=== PATIENT | female | born 1975 | race African-American/Black ===

== ENCOUNTER 2017-06-29 20:00 | Emergency (ER) | payer MEDICAID, OTHER ==
[~2017-06-29] VITALS: Ht 165.1 cm; Wt 151.0 kg
[2017-06-29] MEDS ORDERED: LISINOPRIL20 MG ORAL (20:34)
[2017-06-29] MEDS ORDERED: METFORMIN HCL500 M1 ORAL (20:34)
[2017-06-29 20:40] VITALS: BP 115/78
[2017-06-29] MEDS ORDERED: CLINDAMYCIN HC300 MG ORAL (20:40)
[2017-06-29 20:44] VITALS: BP 115/78
--- NOTE | 2017-06-29 22:41 | Emergency Room Report ---
History of Present Illness General Chief Complaint: Earache Source: Patient Present Illness HPI 41-year-old female no significant past medical history presenting with sore throat and bilateral earache for 2 days. Patient states that his sister has cellulitis. Subjective fever or chills. Patient states that she is still been able to eat and drink well. No hearing loss Allergies: Coded Allergies: PENICILLINS (Verified Allergy, Unknown, 06/29/17) Patient History Past Medical History: see triage record Past Surgical History: none Pertinent Family History: none Last Menstrual Period: May Reviewed Nursing Documentation: PMH: Agreed, PSxH: Agreed Nursing Documentation-PMH Hx Hypertension: Yes Hx Diabetes: Yes Review of Systems All Other Systems: negative except mentioned in HPI Physical Exam Vital Signs Date Time Temp Pulse Resp B/P (MAP) Pulse Ox O2 Delivery O2 Flow Rate FiO2 06/29/17 20:26 99.0 103 18 115/78 99 Sp02 EP Interpretation: reviewed, normal General Appearance: normal inspection, well appearing, no apparent distress, alert, GCS 15, non-toxic Head: normocephalic, atraumatic Eyes: bilateral eye normal inspection, bilateral eye PERRL, bilateral eye EOMI ENT: normal voice, TMs + canals normal, moist mucus membranes, tonsillar swelling, pharyngeal erythema, tonsillar exudate Neck: normal inspection, full range of motion, supple Respiratory: normal inspection, lungs clear, normal breath sounds, no respiratory distress, no retraction, no wheezing, speaking full sentences, chest symmetrical Cardiovascular #1: normal inspection, regular rate, rhythm, no edema, normal capillary refill Cardiovascular #2: 2+ radial (R), 2+ radial (L) Gastrointestinal: normal inspection, non tender, soft, non-distended, no guarding Musculoskeletal: normal inspection, back normal, normal range of motion, non- tender Neurologic: normal inspection, alert, oriented x3, responsive, motor strength/ tone normal, sensory intact, normal gait, speech normal Psychiatric: normal inspection, judgement/insight normal, memory normal Skin: normal inspection, normal color, no rash, warm/dry, well hydrated, normal turgor Medical Decision Making Diagnostic Impression: Primary Impression: Tonsillitis with exudate ER Course 41-year-old female with sore throat DDX: Viral vs. infectious mononucleosis vs. bacterial pharyngitis vs. allergies Other serious causes such as [employer] / RPA / deep space neck infection history/physical most consistent with bacterial pharyngitis Plan: Clindamycin ER course: Patient remains stable in ED. Disposition: Patient will be discharged to home. Patient with allergy to penicillin, clindamycin given Patient will follow up with primary care doctor within 5 days. Strict return precautions discussed with patient such as worsening throat pain/swelling, dysphagia, high fever or chills, shortness of breath, abdominal pain, which may indicate severe illness. Patient verbalized understanding and agreed with plan. Please note that this Emergency Department Report was dictated using [employer]front desk receptionist technology software, occasionally this can lead to erroneous entry secondary to interpretation by the dictation equipment. Last Vital Signs Date Time Temp Pulse Resp B/P (MAP) Pulse Ox O2 Delivery O2 Flow Rate FiO2 06/29/17 20:26 99.0 103 18 115/78 99 Disposition: HOME, SELF-CARE Scripts Clindamycin Hcl (CLINDAMYCIN HCL) 300 Mg Capsule 300 MG ORAL THREE TIMES A DAY for 7 Days, #21 CAP 0 Refills Prov: Kurt Brito M.D. 06/29/17 Referrals: [facility],REFERRING (PCP) Patient Instructions: Tonsillitis, [id number] Kurt Brito M.D. Jun 29, 2017 22:41
== END 2017-06-29 20:44 | disposition home or self-care (01) ==
LOC: EMR 20:24
DX: J03.90 Acute tonsillitis, unspecified (principal); H92.03 Otalgia, bilateral; I10 Essential (primary) hypertension; E11.9 Type 2 diabetes mellitus without complications; Z88.0 Allergy status to penicillin
CPT/HCPCS: 99283

== ENCOUNTER 2018-05-04 18:50 | Emergency (ER) | payer MEDICAID ==
[~2018-05-04] VITALS: Ht 165.1 cm; Wt 149.7 kg
[~2018-05-04 18:50] MED LIST: CLINDAMYCIN HC300 MG ORAL; LISINOPRIL20 MG ORAL; METFORMIN HCL500 M1 ORAL
--- NOTE | 2018-05-04 19:20 | Emergency Room Report ---
History of Present Illness General Chief Complaint: Sore Throat Source: Patient Present Illness HPI 42 YO female presents to the ED c/o 04/09 in severity left ear pain with sore throat and subjective fevers x 2 days. pt. also reports needing refill of two medications. pt. reports hx of DM and HTN. denies neck pain or stiffness. Denies cough. denies recent travel or ill contacts. denies loss of hearing, or ringing of the ears. denies discharge from the ears. Allergies: Coded Allergies: PENICILLINS (Verified Allergy, Unknown, 05/04/18) Patient History Past Medical History: see triage record Past Surgical History: none Pertinent Family History: none Last Menstrual Period: APR 29, 2018 Now: No Reviewed Nursing Documentation: PMH: Agreed; PSxH: Agreed Nursing Documentation-PMH Past Medical History: No History, Except For Hx Hypertension: Yes Hx Diabetes: Yes Review of Systems All Other Systems: negative except mentioned in HPI Physical Exam Vital Signs Date Time Temp Pulse Resp B/P (MAP) Pulse Ox O2 Delivery O2 Flow Rate FiO2 05/04/18 19:00 98.7 102 16 128/85 97 Room Air 98.8 Sp02 EP Interpretation: reviewed, normal General Appearance: no apparent distress, alert, GCS 15, non-toxic Head: normocephalic, atraumatic Eyes: bilateral eye normal inspection, bilateral eye PERRL ENT: hearing grossly normal, normal voice, uvula midline, moist mucus membranes , nasal congestion, pharyngeal erythema, other - left TM is erythematous and bulging. , pharyngeal erythema no exudates or soft tissue swelling. Neck: full range of motion, no meningismus, no bony tend Respiratory: lungs clear, normal breath sounds, no respiratory distress, no accessory muscle use, no wheezing, speaking full sentences Cardiovascular #1: regular rate, rhythm Musculoskeletal: back normal, gait/station normal, normal range of motion, non- tender Neurologic: alert, oriented x3, responsive, motor strength/tone normal, sensory intact, normal gait, speech normal, grossly normal Psychiatric: judgement/insight normal Skin: normal color, no rash, warm/dry, well hydrated Lymphatic: no adenopathy Medical Decision Making PA Attestation Dr. du is my supervising Physician whom patient management has been discussed with. Diagnostic Impression: Primary Impression: Otitis media Qualified Codes: H66.90 - Otitis media, unspecified, unspecified ear Additional Impression: Medication refill ER Course 42 YO female presents to the ED c/o 04/09 in severity left ear pain with sore throat and subjective fevers x 2 days. pt. also reports needing refill of two medications. pt. reports hx of DM and HTN. denies neck pain or stiffness. Denies cough. denies recent travel or ill contacts. denies loss of hearing, or ringing of the ears. denies discharge from the ears. Ddx considered but are not limited to OM, OE, mastoiditis, TM perforation, FB Vital signs: are WNL, pt. is afebrile H&PE are most consistent with otitis media, and medication refill request. ORDERS: none required at this time, the diagnosis is clinical -OTOSCOPY: left TM is erythematous and bulging. ED INTERVENTIONS: None required at this time. DISCHARGE: At this time pt. is stable for d/c to home. With PO ABX. Will provide printed patient care instructions, and any necessary prescriptions. Care plan and follow up instructions have been discussed with the patient prior to discharge. Last Vital Signs Date Time Temp Pulse Resp B/P (MAP) Pulse Ox O2 Delivery O2 Flow Rate FiO2 05/04/18 19:00 98.7 102 16 128/85 97 Room Air 98.8 Disposition: HOME, SELF-CARE Condition: Stable Scripts Azithromycin* (ZITHROMAX*) 250 Mg Tablet 250 MG ORAL DAILY, #6 TAB 0 Refills Take two tables once daily for 1 day, then one tablet once daily for 4 days. Prov: Marina Barrow 05/04/18 Metformin Hcl* (METFORMIN HCL*) 500 Mg Tablet 500 MG ORAL TWICE A DAY, #60 TAB Prov: Marina Barrow 05/04/18 Lisinopril (LISINOPRIL*) 20 Mg Tablet 20 MG ORAL BID, #60 TAB Prov: Marina Barrow 05/04/18 Patient Instructions: Otitis Media, Adult, [id number], Sore Throat Additional Instructions: Take medications as directed. Follow up with a Primary Care Provider in 3-5 days, even if your symptoms have resolved. --Please review list of primary care clinics, if you do not already have a primary care provider Return sooner to ED if new symptoms occur, or current symptoms become worse. - Please note that this Emergency Department Report was dictated using [employer] electrical engineer technology software, occasionally this can lead to erroneous entry secondary to interpretation by the dictation equipment. Marina Barrow May 04, 2018 19:20
[2018-05-04] MEDS ORDERED: METFORMIN HCL500 M1 ORAL (19:22)
[2018-05-04] MEDS ORDERED: LISINOPRIL20 MG ORAL (19:22)
[2018-05-04] MEDS ORDERED: ZITHROMAX250 MG ORAL (19:22)
[2018-05-04 19:28] VITALS: BP 128/85
== END 2018-05-04 19:36 | disposition home or self-care (01) ==
LOC: EMR 19:30
DX: H92.02 Otalgia, left ear (principal); H66.90 Otitis media, unspecified, unspecified ear; Z76.0 Encounter for issue of repeat prescription; E11.9 Type 2 diabetes mellitus without complications; I10 Essential (primary) hypertension; Z88.0 Allergy status to penicillin
CPT/HCPCS: 82962; 99283